=== PATIENT | female | born 1955 | race Caucasian/White ===

== ENCOUNTER 2018-05-12 15:02 | Emergency (ER) | payer OTHER ==
[~2018-05-12] VITALS: Ht 157.5 cm; Wt 62.9 kg
[~2018-05-12 15:02] MED LIST: BENADRYL50 MG PO; LISINOPRIL2.5 MG PO; PEPCID20 MG PO; PREDNISONE10 MG PO; PREDNISONE50 MG PO; ZYRTEC10 M2 PO
[2018-05-12 15:41] LABS: BASOPHIL (%) 0.4 % (0-1); EOSINOPHIL (%) 0.8 % (0-5); EOSINOPHIL COUNT 0.1 K/uL (0-0.3); HEMATOCRIT 40.7 % (36.0-46.0); HEMOGLOBIN 13.7 G/DL (11.9-15.5); IMMATURE GRANULOCYTE (%) 0.3 % (0.0-0.7); LYMPHOCYTE (%) 32.3 % (15-42); LYMPHOCYTE COUNT 2.6 K/uL (1.0-2.8); MCH 29.8 PG (29.0-34.0); MCHC 33.7 G/DL (30.0-36.0); MCV 88.5 FL (83-99); MONOCYTE (%) 9.9 % (3-12); MONOCYTE COUNT 0.8 K/uL (0-0.8); NEUTROPHIL (%) 56.3 % (45-76); NEUTROPHIL COUNT 4.5 K/uL (1.8-6.4); PLATELET COUNT 235 K/uL (156-360); RBC DIS.WIDTH-CV 13.4 % (11.8-14.6); RBC DIS.WIDTH-SD 43.9 % (39-53); WHITE BLOOD COUNT 7.9 K/uL (4.1-10.2)
[2018-05-12 15:52] LABS: ALBUMIN 4.2 g/dL (3.2-4.8)
[2018-05-12 15:53] LABS: CHLORIDE 107 mEq/L (99-109); POTASSIUM 4.1 mEq/L (3.7-5.4); SODIUM 139 mEq/L (136-147)
[2018-05-12 15:55] LABS: GLUCOSE 102 mg/dL (70-99); TOTAL PROTEIN 7.2 g/dL (6.4-8.3)
[2018-05-12 15:57] LABS: TOTAL BILIRUBIN 0.7 mg/dL (0.0-1.0)
[2018-05-12 15:58] LABS: ALKALINE PHOSPHATASE 92 IU/L (3-129)
[2018-05-12 15:59] LABS: CREATININE 0.8 mg/dL (0.6-1.3); GFR ESTIMATE (CALCULATED) > 59 mL/min/
[2018-05-12 16:00] LABS: AST (GOT) 18 IU/L (2-34); UREA NITROGEN (BUN) 15 mg/dL (9-23)
[2018-05-12 16:01] LABS: ALT (GPT) 21 IU/L (3-49)
[2018-05-12 16:02] LABS: LIPASE 46 U/L (1.0-51.0)
[2018-05-12 17:26] LABS: APPEARANCE CLEAR ((CLEAR)); BILIRUBIN NEGATIVE; BLOOD NEGATIVE; COLOR STRAW ((YELLOW)); GLUCOSE (STRIP) NEGATIVE; KETONES NEGATIVE; LEUKOCYTES NEGATIVE; NITRITE NEGATIVE; PROTEIN (STRIP) NEGATIVE; SPECIFIC GRAVITY 1.006 (1.000-1.030); UROBILINOGEN 0.2 MG/DL (0.2-1.0)
[2018-05-12] MEDS ORDERED: ZOFRAN ODT4 MG PO (17:54)
[2018-05-12] MEDS ORDERED: ULTRAM50 MG PO (17:54)
[2018-05-12 18:13] VITALS: BP 132/80
== END 2018-05-12 18:15 | disposition home or self-care (01) ==
LOC: EME 15:02
PROVIDERS: Physician Assistant
DX: R10.9 Unspecified abdominal pain (principal); R11.0 Nausea; K80.20 Calculus of gallbladder without cholecystitis without obstruction; N28.1 Cyst of kidney, acquired; K57.30 Diverticulosis of large intestine without perforation or abscess without bleeding; N20.1 Calculus of ureter; K44.9 Diaphragmatic hernia without obstruction or gangrene; I70.0 Atherosclerosis of aorta; I10 Essential (primary) hypertension
CPT/HCPCS: 74176; 80053; 81003; 83690; 85025; 99281; 99284; J1885